=== PATIENT | female | born 1975 | race Caucasian/White ===

== ENCOUNTER → 2022-07-03 13:04 | Outpatient (BNVA) | payer OTHER, SELFPAY | PROVIDERS: Visit Provider Physician Assistant | DX: E66.01 Morbid (severe) obesity due to excess calories (principal); K25.9 Gastric ulcer, unspecified as acute or chronic, without hemorrhage or perforation; Z68.41 Body mass index [BMI] 40.0-44.9, adult; Z98.84 Bariatric surgery status | CPT/HCPCS: 99202 ==

== ENCOUNTER 2022-07-30 14:33 | Outpatient (REF) | payer OTHER, SELFPAY ==
[2022-07-30 16:14] LABS: Estimated Average Glucose 91 mg/dL; Hemoglobin A1c % 4.8 %
[2022-07-30 16:21] LABS: Iron 95 mcg/dL (30-160); Percent Iron Saturation 33 % (15-50); Total Iron Binding Capacity 287 mcg/dL (228-428); Unsaturated Iron Binding 192 ug/dL
[2022-07-30 16:33] LABS: Ferritin 110 ng/mL (10-250); Insulin 5 uU/mL (2-29); Vitamin D 25-OH Total 34.1 ng/mL (>30)
[2022-07-30 16:52] LABS: Vitamin B12 > 2000 pg/mL (200-900)
[2022-07-31 13:48] LABS: Calcium (PTHI) 9.2 mg/dL (8.6-10.2); PTHI 61 pg/mL (16-77)
[2022-08-02 05:23] LABS: Zinc 59 mcg/dL (60-130)
[2022-08-02 23:39] LABS: Vitamin A 51 mcg/dL (38-98)
[2022-08-03 12:03] LABS: Vitamin B1 18 nmol/L (8-30)
== END 2022-07-30 14:34 | disposition home or self-care (01) ==
LOC: HO.LAB 14:33
PROVIDERS: PCP Nurse Practitioner Family; Visit Provider Physician Assistant
DX: Z01.818 Encounter for other preprocedural examination (principal); E66.01 Morbid (severe) obesity due to excess calories; Z98.84 Bariatric surgery status
CPT/HCPCS: 36415; 82306; 82607; 82728; 82746; 83036; 83525; 83540; 83970; 84425; 84590; 84630; 86140

== ENCOUNTER → 2022-08-11 11:12 | Outpatient (BNVA) | payer OTHER, SELFPAY | PROVIDERS: PCP Nurse Practitioner Family; Visit Provider Physician Assistant | DX: E66.01 Morbid (severe) obesity due to excess calories (principal); Z68.41 Body mass index [BMI] 40.0-44.9, adult; Z87.19 Personal history of other diseases of the digestive system; Z98.84 Bariatric surgery status | CPT/HCPCS: 99212 ==

== ENCOUNTER 2022-08-21 08:54 | Outpatient (REF) | payer OTHER, SELFPAY ==
--- NOTE | ~2022-08-21 | FL_ITS ---
EXAMINATION: XR FLUOROSCOPY UPPER GI WITH AIR CLINICAL INFORMATION: Morbid/severe obesity. Preop. COMPARISON: None. TECHNIQUE: Routine upper GI contrast study was performed in the upright and lying position. FINDINGS: Following oral administration of thick barium and effervescent granules is normal propagation bolus from the oral cavity through the pharynx, esophagus into stomach without obstruction, narrowing or stricture. On placing patient supine and prone lying there is evidence of previous gastric bypass surgery with a very small stomach. The afferent and efferent jejunal loops are patent. No mucosal irregularity seen in the stomach or the small bowel loops. There is mild gastroesophageal reflux. FLUOROSCOPY TIME: 1.6 minutes. DOSE AREA PRODUCT: 36.241 uGy-m2 (microgray-meter squared). FL/FL upper GI w air IMPRESSION: 1. Gastric bypass surgical changes with patent gastrojejunal anastomosis. The afferent and efferent loops are patent. 2. Mild gastroesophageal reflux.
== END 2022-08-21 08:55 | disposition home or self-care (01) ==
LOC: HO.XRAY 08:54
PROVIDERS: PCP Nurse Practitioner Family; Visit Provider Physician Assistant
DX: E66.01 Morbid (severe) obesity due to excess calories (principal); K21.9 Gastro-esophageal reflux disease without esophagitis; Z98.84 Bariatric surgery status; Z98.890 Other specified postprocedural states
CPT/HCPCS: 74246

== ENCOUNTER 2022-09-04 06:34 | Day surgery (SDC) | payer OTHER, SELFPAY ==
[2022-09-03 16:28] LABS: COVID-19 Test Negative (Negative); IDNOW Serial# 16C4AD1C
[2022-09-04 06:39] VITALS: BP 138/95; PULSE 86; RESP 16; TEMP 36.6; O2SAT 97; BMI 42.6
[2022-09-04] MEDS: Lactated Ringers 1,000 ML 50 ML IVCONT (07:02)
--- NOTE | 2022-09-04 07:24 | HO.ANESPROP2 ---
HPI - Anesthesia Eval Consult details Narrative: For EGD PMFSH Active Problems Active Problems: All Active Problems (Updated 07/04/22 @ 14:03 by Fauzia Love PA-C) Pre-op evaluation (Acute) Gastric ulcer (Acute) Hx of hernia repair (Acute) History of gastric surgery (Acute) Hx of gastric bypass (Acute) Morbid obesity (Acute) Past Medical History Patient : No Family History Family History Mother COPD (chronic obstructive pulmonary disease) Cirrhosis of liver Father Kidney disease Brother Diabetes Hypertension Brother No problems noted. Daughter No problems noted. Daughter Asthma Family history of problems with anesthesia: No Surgical History Surgical History History of gastric surgery Hx of gastric bypass Hx of hernia repair Hx of knee surgery Hx of plastic surgery Hx of tubal ligation Hx of unilateral salpingectomy History of Problems with Anesthesia: No Social History Social History Alcohol intake: current Alcohol intake frequency: holidays/special occasions only Patient Tobacco Use Status: Current someday Tobacco user Are you DNR?: No Advance Directives: No Advance Directives Information Provided: Yes Nutrition Risks: No Nutritional Risk Meds Allergies Allergy/AdvReac Type Severity Reaction Status Date / Time No Known Allergies Allergy Verified 08/11/22 11:18 Active Medications: Current Medications Lactated Ringer's (Lr) 1,000 mls @ 50 mls/hr IVCONT .Q20H JER Last Admin: 09/04/22 07:02 Dose: 50 mls/hr Home Medications Medication Instructions Recorded Confirmed Last Taken Type ascorbic acid (vitamin C) 500 mg mg PO 06/30/22 Unknown History capsule bupropion HCl 300 mg 24 hr tablet, 300 mg PO QAM 06/30/22 Unknown History extended release (Wellbutrin XL) calcium carbonate 600 mg calcium 600 mg PO BID 06/30/22 Unknown History (1,500 mg) tablet (Calcium) cranberry 400 mg capsule 400 mg PO DAILY 06/30/22 Unknown History lamotrigine 100 mg tablet 100 mg PO DAILY 06/30/22 Unknown History methenamine hippurate 1 gram tablet 1 g PO BID 06/30/22 Unknown History multivitamin 1 tab PO DAILY 06/30/22 Unknown History oxybutynin chloride 10 mg 10 mg PO DAILY 06/30/22 Unknown History tablet,extended release 24 hr pantoprazole 40 mg tablet,delayed 40 mg PO DAILY 06/30/22 Unknown History release psyllium husk 0.4 gram capsule 0.4 g PO DAILY 06/30/22 Unknown History (Daily Fiber) vitamin B complex (B 1 tab PO DAILY 06/30/22 Unknown History Complex-Vitamin B12 tablet) Exam Exam Date and Time: September 04, 202224 Height,Weight and Vital Signs: Height 5 ft 2 in Weight 105.687 kg Last Vital Signs Temp 98 F 09/04/22 06:39 Pulse 86 09/04/22 06:39 Resp 16 09/04/22 06:39 BP 138/95 H 09/04/22 06:39 Pulse Ox 97 09/04/22 06:39 O2 Del Method 09/04/22 06:39 Pertinent Lab Results Pertinent Lab Results: Laboratory Tests 09/03/22 15:50 COVID-19 ([facility]) Negative COVID-19 Clin Com See Note Airway Mallampati Class: II TM Dist: >3cm Neck ROM: Full Loose/Missing/Broken Teeth: Yes and Upper Heart: ok Lungs: ok Assessment and Plan Assessment Anesthesia Assessment: Anesthesia Plan Discussed and Chart Reviewed Final Anesthetic Review Family History of Problems with Anesthesia: No History of Problems with Anesthesia: No NPO: Yes ASA Class: III Final Preanesthetic Review: No Changes in Pt Med Stat, Meds/Allgs Chart Reviewed, Consent Obtained/Reviewed and Anes Risks/Benef Reviewed Patient Risk: Intermediate Procedure Risk: Intermediate Anesthetic Plan Anesthetic Plan: MAC: and Agree w/ Assess. and Plan Disposition: Standard PACU
--- NOTE | 2022-09-04 07:59 | P.BOP_ITS ---
Brief Operative Note Date of Service: 09/04/22 Pre-op diagnosis: GERD, weight gain, s/p gastric bypass Post-op diagnosis: same (1) gastritis, 2) presence of 4 metallic objects from previous Stomaphyx procedures) Procedure: PROCEDURE DATE: ?07/28/2019 PREOPERATIVE DIAGNOSIS: GERD, s/p gastric bypass POSTOPERATIVE DIAGNOSIS: ?Same as above. 1) Redundant gastric pouch, 2) gastritis, 3) 4 metallic objects from previous Stomaphyx procedure PROCEDURE: Izvbqbrn-vukilg-lumoutpaksd with biopsies Surgeon: ?Ranjit Quijano M.D.. Ph.D. Alterations Workroom Clerk: ?None ? Anesthesia: IV sedation Estimated blood loss: ?Minimal FINDINGS AND PROCEDURE: ? OPERATIVE INDICATIONS: ?The patient is a 47 year old female known to me who underwent a laparoscopic gastric bypass elsewhere. The patient had inadequate weight loss so far and has GERD.?She had two Stomaphyx procedures to reduce the stoma size and the pouch size in an effort to provide restriction and further weight loss, which was unsuccessful. Based on this information I recommended an upper endoscopy to evaluate the patient's symptoms.? Risks and complications of the surgery were discussed with the patient in advance particularly the possibility of perforation or bleeding that may require surgical intervention. The patient understood the risks and was in agreement with the plan. ? PROCEDURE: After informed consent was obtained by the patient, the patient was ?transferred to the Operating Room and was placed in the supine position.? After successful induction of IV sedation, a mouth block was placed and the patient was placed in the left lateral decubitus position. An upper endoscopy was performed next, the oropharynx and esophagus appeared within the normal limits. There was no hiatal hernia.? The z-line was smooth. One biopsy was obtained from the GE junction. The gastric pouch was entered. There was mild lateral redundancy. There was one suture with a metallic anchor present at the lateral aspect of the pouch and three around the gastrojejuno stomy, being located at the intestinal side of the anastomosis. There was gastritis but the gastrojejunostomy was patent. A biopsy was obtained from the gastric pouch. No significant bleeding was noted from any of the biopsy sites. There was no anastomotic ulcer.? At that point the scope was advanced into the proximal small intestine (proximal Conrad limb) which appeared to be normal as well. The Conrad limb and the pouch were decompressed and the scope was withdrawn from the patient's mouth. The patient was awaken and was transferred in stable condition to the Recovery Room for further care. I was present and performed all steps of the procedure. There were no residents to assist with this case. Ranjit Quijano M.D., Ph.D. Surgeon: Vinayak Quijano MD Anesthesia: MAC Was an Alterations Workroom Clerk used for this Procedure?: No Estimated blood loss (mL): 0 IV fluids (mL): 300 Urine output (mL): 0 (No Hobbs to record output) Pathology: other (1) Gastric pouch x1, 2) GE junction x1) Condition: stable Disposition: PACU
[2022-09-04 08:00] VITALS: BP 103/58; PULSE 77; RESP 16; TEMP 36.1; O2SAT 92
[2022-09-04 08:15] VITALS: BP 120/79; PULSE 65; RESP 16; O2SAT 94
[2022-09-04 08:30] VITALS: BP 107/73; PULSE 66; RESP 18; TEMP 36.6; O2SAT 97
[2022-09-04 08:45] VITALS: BP 109/74; PULSE 71; RESP 18; O2SAT 97
== END 2022-09-04 09:18 | disposition home or self-care (01) ==
PROVIDERS: Physician Assistant Surgical; PCP Nurse Practitioner Family; Visit Provider Surgery
PROC: 0DJ08ZZ Inspection of Upper Intestinal Tract, Via Natural or Artificial Opening Endoscopic (ICD-10-PCS; CPT 43235; principal; 2022-09-04 07:30)
DX: K21.9 Gastro-esophageal reflux disease without esophagitis (principal); Z98.0 Intestinal bypass and anastomosis status; Z98.84 Bariatric surgery status; K29.50 Unspecified chronic gastritis without bleeding; E66.01 Morbid (severe) obesity due to excess calories; K25.9 Gastric ulcer, unspecified as acute or chronic, without hemorrhage or perforation; Z87.19 Personal history of other diseases of the digestive system; Z68.41 Body mass index [BMI] 40.0-44.9, adult; Z98.51 Tubal ligation status; Z98.890 Other specified postprocedural states; Z20.822 Contact with and (suspected) exposure to COVID-19; Z79.899 Other long term (current) drug therapy
CPT/HCPCS: 43239; 87635; 88305; 88342; J3010

== ENCOUNTER → 2022-09-08 11:36 | Outpatient (BNVA) | payer OTHER, SELFPAY | PROVIDERS: PCP Nurse Practitioner Family; Visit Provider Physician Assistant | DX: E66.01 Morbid (severe) obesity due to excess calories (principal); Z68.41 Body mass index [BMI] 40.0-44.9, adult; Z98.84 Bariatric surgery status | CPT/HCPCS: 99212 ==

== ENCOUNTER → 2022-10-10 13:48 | Outpatient (BNVA) | payer OTHER, SELFPAY | PROVIDERS: PCP Nurse Practitioner Family; Visit Provider Physician Assistant | DX: E66.01 Morbid (severe) obesity due to excess calories (principal); Z68.39 Body mass index [BMI] 39.0-39.9, adult; Z98.84 Bariatric surgery status | CPT/HCPCS: 99212 ==

== ENCOUNTER → 2022-11-03 11:09 | Outpatient (BNVA) | payer OTHER, SELFPAY | PROVIDERS: PCP Nurse Practitioner Family; Visit Provider Physician Assistant | DX: E66.01 Morbid (severe) obesity due to excess calories (principal); K25.9 Gastric ulcer, unspecified as acute or chronic, without hemorrhage or perforation; Z98.84 Bariatric surgery status; Z98.890 Other specified postprocedural states; Z87.19 Personal history of other diseases of the digestive system; Z68.41 Body mass index [BMI] 40.0-44.9, adult | CPT/HCPCS: 99212 ==

== ENCOUNTER → 2022-11-12 14:17 | Outpatient (BNVA) | payer OTHER, SELFPAY | PROVIDERS: PCP Nurse Practitioner Family; Visit Provider Counselor Mental Health ==

== ENCOUNTER 2022-12-02 09:25 | Outpatient (REF) | payer OTHER, SELFPAY ==
--- NOTE | ~2022-12-02 | XR_ITS ---
EXAMINATION: XR CHEST CLINICAL INFORMATION: Obesity COMPARISON: None available. TECHNIQUE: 2 views of the chest were obtained. FINDINGS: The cardiac and mediastinal contours are normal. The lungs are clear. No pleural effusion or pneumothorax. Mild degenerative changes of the spine and scoliosis. XR/XR chest 2V IMPRESSION: No evidence for acute disease in the chest.
== END 2022-12-02 09:26 | disposition home or self-care (01) ==
LOC: HO.US 09:25
PROVIDERS: PCP Nurse Practitioner Family; Visit Provider Physician Assistant
DX: Z01.818 Encounter for other preprocedural examination (principal); E66.01 Morbid (severe) obesity due to excess calories; Z98.84 Bariatric surgery status; Z98.890 Other specified postprocedural states; Z87.19 Personal history of other diseases of the digestive system
CPT/HCPCS: 71046

== ENCOUNTER → 2022-12-22 11:13 | Outpatient (BNVA) | payer OTHER, SELFPAY | PROVIDERS: PCP Nurse Practitioner Family; Visit Provider Physician Assistant | DX: E66.01 Morbid (severe) obesity due to excess calories (principal); Z98.84 Bariatric surgery status; Z68.38 Body mass index [BMI] 38.0-38.9, adult | CPT/HCPCS: 99212 ==

== ENCOUNTER → 2023-01-08 11:00 | Outpatient (BNVA) | payer OTHER, SELFPAY | PROVIDERS: PCP Nurse Practitioner Family; Visit Provider Counselor Mental Health ==

== ENCOUNTER 2023-02-16 10:16 | Outpatient (AMB) | payer OTHER, SELFPAY ==
--- NOTE | 2023-02-16 10:00 | A.OFFVIS_ITS ---
Intake VS Expanded 02/16/23 10:24 Height 5 ft 2 in Weight 209 lb 6.4 oz BMI 38.3 BP 125/75 Blood Pressure Location Rt brachial Blood Pressure Position Sitting Pulse 80 Pulse Source Pulse Oximeter Temp 97.7 F Temperature Source Tympanic Pulse Oximetry 96 Oxygen Delivery Method Room Air Body Fat 78.4 Body Fat Percentage 37.5 Free Fat Mass 130.8 Muscle Mass 124.2 Visceral Mass 10.0 Water Mass 93.2 BMR 1,790 Intake Visit Reasons: (OV) F/U SWL Allergies No Known Allergies Allergy (Verified 12/22/22 11:17) HPI HPI Comments History of Present Illness Details SWL followup for revision after revision of previous GBP. she has had EGD by Dr Johnson and has been approved for revision. LIMNOLOGIST weight of 229.4, last appt was December 22. TBWL is 20 lbs or 8.7%. Her sister suddenly and patient is still grieving. She is trying to find a permanent therapist. She reports many other stressors in her life presently. She has the following pre operative work up to complete: 1. BH follow ups - last seen 01/08, no follow up scheduled. 2. RD initial appt - still has not seen RD and no appt scheduled. 3. ECG - will do on ULS day 4. She needs to reschedule her ULS - scheduled for 03/03 Meal plan: tea 7am- Premier shake 11am - yogurt or bar 1-2 pm- second shake 5pm - yogurt or bar 8 pm - dinner of 4 oz/4 oz ETOH - We re-discussed that she needs to continue decreasing her evening ETOH and stop completely. She is still drinking alcohol a few shots in 8 oz liquid a few days per week, may not finish it, falls asleep first - she states she understands she must stop completely before surgery. Smokes 2 joints (not complete ones) per day in evening after work. Exercise - has not for one month needs 4 d of cardio and [address] per week Sleep medicine ([facility]) told her not to use CPAP until has repeat sleep study, not scheduled until Novemeber. [facility] Surgical History History of gastric surgery Hx of gastric bypass Hx of hernia repair Hx of knee surgery Hx of plastic surgery Hx of tubal ligation Hx of unilateral salpingectomy Family History Mother COPD (chronic obstructive pulmonary disease) Cirrhosis of liver Father Kidney disease Brother Diabetes Hypertension Brother No problems noted. Daughter No problems noted. Daughter Asthma Social History Alcohol intake: current Alcohol intake frequency: holidays/special occasions only Patient Tobacco Use Status: Current someday Tobacco user Physical Exam Vital Signs: Last Vital Signs Temp 97.7 F 02/16/23 10:24 Pulse 80 02/16/23 10:24 BP 125/75 02/16/23 10:24 Pulse Ox 96 02/16/23 10:24 Oxygen Delivery Method Room Air 02/16/23 10:24 BMI result Body Mass Index 38.3 Assessment & Plan Assessment & Plan (1) Obesity: Code(s): E66.9 - Obesity, unspecified Plan: Pt continues to prepare for revision surger after revision of GBP. She also has history of gastric ulcer and continues to use alcohol and marijuana. Had EGD by Dr Johnson. TBWL is 20 lbs or 8.7%. She states she can stop alcohol whenever she wants and will continue to decrease now. We discussed not smoking marijuana bur using an edible for arthritis pain and to help her sleep. She states she will start exercise again. She is being scheduled for appts with Veronica and Celina. Next appt with me after ULS done. I will discuss her case with Dr Johnson again. Patient is morbidly obese and is not considered stable at this time. I spent 30 minutes in total with patient reviewing/updating records, examining the patient and counseling the patient on weight management as detailed above. (2) History of gastric surgery: Comment: REVISION-2017 & 2019-over stitch on stomach pouch Code(s): Z98.890 - Other specified postprocedural states (3) Gastric ulcer: Comment: s/p GBP, cauterized Code(s): K25.9 - Gastric ulcer, unspecified as acute or chronic, without hemorrhage or perforation (4) Bipolar disorder, unspecified: Code(s): F31.9 - Bipolar disorder, unspecified (5) Alcohol dependence: Code(s): F10.20 - Alcohol dependence, uncomplicated (6) Marijuana smoker: Code(s): F12.90 - Cannabis use, unspecified, uncomplicated Coding Level of Care Code Est Pt Level 4 (60325) Diagnoses Obesity E66.9 History of gastric surgery Z98.890 Gastric ulcer K25.9 Bipolar disorder, unspecified F31.9 Alcohol dependence F10.20 Marijuana smoker F12.90
[2023-02-16 10:24] VITALS: BP 125/75; PULSE 80; TEMP 36.5; O2SAT 96; BMI 38.3
== END 2023-02-16 10:59 | disposition home or self-care (01) ==
PROVIDERS: PCP Nurse Practitioner Family; Visit Provider Physician Assistant
DX: E66.9 Obesity, unspecified (principal); Z68.38 Body mass index [BMI] 38.0-38.9, adult; K25.9 Gastric ulcer, unspecified as acute or chronic, without hemorrhage or perforation; F31.9 Bipolar disorder, unspecified; F10.20 Alcohol dependence, uncomplicated; Z98.890 Other specified postprocedural states; F12.90 Cannabis use, unspecified, uncomplicated
CPT/HCPCS: 99214

== ENCOUNTER → 2023-02-16 10:16 | Outpatient (BNVA) | payer OTHER, SELFPAY | PROVIDERS: PCP Nurse Practitioner Family; Visit Provider Physician Assistant | DX: E66.9 Obesity, unspecified (principal); Z68.38 Body mass index [BMI] 38.0-38.9, adult; K25.9 Gastric ulcer, unspecified as acute or chronic, without hemorrhage or perforation; F31.9 Bipolar disorder, unspecified; F10.20 Alcohol dependence, uncomplicated; F12.90 Cannabis use, unspecified, uncomplicated; Z98.84 Bariatric surgery status | CPT/HCPCS: 99212 ==

== ENCOUNTER 2023-02-26 11:19 | Outpatient (AMB) | payer OTHER, SELFPAY ==
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
== END 2023-02-26 15:23 | disposition home or self-care (01) ==
LOC: HO.HBST 11:19
PROVIDERS: PCP Nurse Practitioner Family; Visit Provider Counselor Mental Health
DX: F31.9 Bipolar disorder, unspecified (principal); E66.09 Other obesity due to excess calories; Z68.38 Body mass index [BMI] 38.0-38.9, adult; Z98.84 Bariatric surgery status
CPT/HCPCS: 90832

== ENCOUNTER → 2023-02-26 11:19 | Outpatient (BNVA) | payer OTHER, SELFPAY | PROVIDERS: PCP Nurse Practitioner Family; Visit Provider Counselor Mental Health ==

== ENCOUNTER 2023-03-03 10:20 | Outpatient (REF) | payer OTHER, SELFPAY ==
--- NOTE | ~2023-03-03 | US_ITS ---
EXAMINATION: US COMPLETE ABDOMEN WITH LIVER ELASTOGRAPHY CLINICAL INFORMATION: Morbid obesity. COMPARISON: None available. TECHNIQUE: Real-time imaging of the abdominal viscera. Noninvasive ultrasound liver fibrosis assessment is performed using Vidal ElastPQ point quantification shear wave elastography (2D-SWE) with a C5-2 MHz transducer. Multiple elastography samples are obtained. FINDINGS: PANCREAS: Normal. The visualized pancreatic head and body are normal in appearance. The remainder of the pancreas is obscured from visualization by the overlying bowel gas. ABDOMINAL AORTA: The proximal, middle, and distal aortic segments are normal in caliber. INFERIOR VENA CAVA: Visualized portions are normal. LIVER: There is mild hepatomegaly. The liver demonstrates normal contour and echogenicity. No focal solid lesion or intrahepatic biliary duct dilatation. Within the right hepatic lobe, a 1.4 cm benign, simple cyst is seen. This requires no imaging follow-up. The right lobe measures 19.0 cm in length. The left lobe measures 9.8 cm in length. Portal flow is towards the liver (hepatopetal). Shear wave liver elastography median stiffness is 1.90 m/s (reference: normal median stiffness is 1.3 m/s or less). IQR/median stiffness to assess sampling precision is 0.11 (reference: good quality data set is IQR/median stiffness of 0.15 or less). GALLBLADDER: There is mild layering debris. The gallbladder is physiologically distended without evidence of stones, polyps, wall thickening or pericholecystic fluid. COMMON BILE DUCT: Normal in caliber measuring 0.4 cm in. RIGHT KIDNEY: Normal. No hydronephrosis. No renal calculi or focal parenchymal lesions. The kidney measures 11.6 cm in maximum dimension. LEFT KIDNEY: At the lower pole, a 1.7 cm benign, simple cyst is seen, for which no imaging follow-up is recommended. No hydronephrosis. No renal calculi or focal parenchymal lesions. The kidney measures 12.4 cm in maximum dimension. SPLEEN: A 9 mm shadowing benign, calcified granuloma is seen medially. The spleen measures 11.8 cm in maximum dimension. FREE FLUID: None. US/US abdomen comp w elastography IMPRESSION: 1. There is generalized increase in hepatic echotexture, consistent with fatty infiltration or hepatocellular disease. Please correlate clinically. No focal hepatic mass or intrahepatic biliary dilatation is seen. 2. There is hepatomegaly. 3. Liver elastography: Measurements are suggestive of compensated advanced chronic liver disease but need further test for confirmation. 4. There is minimal biliary sludge. No cholelithiasis, cholecystitis or choledocholithiasis is seen. REFERENCE: Society of Radiologists in Ultrasound Liver Stiffness Thresholds (2020): LIVER STIFFNESS THRESHOLDS: *Liver Stiffness equal or less than 1.3 m/s: High probability of being normal. *Liver Stiffness less than 1.7 m/s: In the absence of other known clinical signs, rules out compensated advanced chronic liver disease. *Liver Stiffness 1.7-2.1 m/s: Suggestive of compensated advanced chronic liver disease but need further test for confirmation. *Liver Stiffness over 2.1 m/s: Rules in compensated advanced chronic liver disease. *Liver Stiffness over 2.4 m/s: Suggestive of clinically significant portal hypertension. QUALITY OF DATA SET: *IQR/Median value equal or less than 0.15 implies a quality data set. *IQR/Median value over 0.15 implies a poor quality data set. SIGNIFICANT CHANGE FROM PRIOR EXAM: Significant change if liver stiffness measurement is 10% or greater from prior exam. OTHER CONSIDERATIONS: The stage of liver fibrosis may be overestimated in the setting of acute hepatitis, liver inflammation, elevated liver function tests, hepatic vascular congestion, obstructive cholestasis, non-fasting state, and infiltrative diseases such as amyloidosis and lymphoma. In some patients with NAFLD, the liver stiffness thresholds for compensated advanced chronic liver disease may be lower. In causes other than viral hepatitis and NAFLD, liver stiffness thresholds are not well established.
== END 2023-03-03 10:21 | disposition home or self-care (01) ==
LOC: HO.US 10:20
PROVIDERS: PCP Nurse Practitioner Family; Visit Provider Physician Assistant
DX: Z01.818 Encounter for other preprocedural examination (principal); E66.01 Morbid (severe) obesity due to excess calories; Z98.84 Bariatric surgery status; Z98.890 Other specified postprocedural states; Z87.19 Personal history of other diseases of the digestive system
CPT/HCPCS: 76705; 76981